=== PATIENT | female | born 1995 | race Caucasian/White ===

== ENCOUNTER 2021-05-09 23:00 | Emergency (ER) | payer OTHER ==
[~2021-05-09 23:00] MED LIST: COLACE 100MG C100 MG PO; PRENATAL VITAM1 EAC8 PO; RA PRENATAL TA1 EACH PO; ZANTAC150 MG PO
[2021-05-10] MEDS ORDERED: CYCLOBENZAPRINE10 MG PO (04:29)
== END 2021-05-10 04:44 | disposition home or self-care (01) ==
LOC: ER1 23:00
DX: S16.1XXA Strain of muscle, fascia and tendon at neck level, initial encounter (principal); F17.290 Nicotine dependence, other tobacco product, uncomplicated; W22.8XXA Striking against or struck by other objects, initial encounter
CPT/HCPCS: 72040; 96372; 99283; J1885